=== PATIENT | male | born 1940 | race Caucasian/White ===

== ENCOUNTER → 2016-10-08 | Outpatient (CLI) | payer OTHER, MEDICARE ==
[~2016-10-08] VITALS: Ht 182.9 cm; Wt 86.2 kg
[~2016-10-08] MED LIST: ADULT LOW DOSE81 MG PO; ADVAIR HFA 230M12 GM INH; ALDACTONE25 MG PO; ASPIRIN EC325 M1 PO; ATORVASTATIN CA40 MG PO; CARVEDILOL12.5 MG PO; CHLORTHALIDONE25 MG PO; COREG PO; ELIQUIS5 MG PO; LASIX 40 MG TAB40 M1 PO; LASIX 40 MG TAB40 M2 PO; LEVOTHYROXINE 0.1 MG PO; LISINOPRIL40 MG PO; PACERONE 200 M200 M1 PO; POTASSIUM CHLO20 ME1 PO; POTASSIUM20 PO; PRADAXA150 MG PO; PROAIR HFA8.5 GM INH; SIMVASTATIN40 MG PO; SPIRIVA INH
--- NOTE | ~2016-10-08 | EKG ---
[address] [address] ELECTROCARDIOGRAM REPORT Name: TABITHA WATSON Room #: REG [facility]#: [id number] Admission: 10/08/16 Attend Phys: Mickey Molina MD Discharge: Date of : 38 Report #: [id number] THIS REPORT FOR: //name// [facility] Test Date: 2016-10-08 Test Time: 11:48:56 Pat Name: TABITHA WATSON Department: Room: Gender: M Chief Of Safety And Protection: nelly : 1940 Requested By: Mickey Molina Order Number: [id number] MD: Mickey Molina Measurements Intervals [place] Rate: 57 P: [place]: 64 QRS: 14 QRSD: 136 T: 265 QT: 457 QTc: 445 Interpretive Statements Atrial-paced rhythm Nonspecific intraventricular conduction delay Anteroseptal infarct, old Abnormal T, consider ischemia, diffuse leads Baseline wander in lead(s) V4,V6 No previous ECG available for comparison Electronically Signed On 10-08-2016 14:16:20 RN PLASTICS by Mickey Molina [email or web address] <ELECTRONICALLY SIGNED> By: Mickey Molina MD 10/08/16 1416 1148 1148 Mickey Molina MD /EPI
--- NOTE | ~2016-10-08 | P ---
[facility] [place] [address] [place] [address] PROCEDURE REPORT Name: WATSONTABITHA Huber Room #: REG [facility]#: [id number] Admission: 10/08/16 Attend Phys: Mickey Molina MD Discharge: Date of : 38 Report #: [id number] THIS REPORT FOR: //name// CC: Mickey Martinnadeem Crawfordcesilia DATE OF SERVICE: 10/08/2016 PREOPERATIVE DIAGNOSIS: Atrial fibrillation. POSTOPERATIVE DIAGNOSIS: Atrial fibrillation. HISTORY: The patient is a 76-year-old with ischemic cardiomyopathy, status post Medtronic ICD implantation, who presents with recurrent AFib and is here for cardioversion. ANESTHESIA: The patient underwent MAC anesthesia, no anesthesia related complications. DESCRIPTION OF PROCEDURE: The patient underwent informed consent, he had patches placed in AP fashion. Once sedated, he underwent a 200 joule cardioversion, which restored sinus rhythm for a few seconds and then went back to AFib. A second 200 joule cardioversion was performed with advent of sinus rhythm. His device was interrogated, post-cardioversion was found to be functioning normally. CONCLUSIONS: 1. Successful cardioversion with advent of sinus rhythm. 2. Normal device function. <ELECTRONICALLY SIGNED> By: Mickey Molina MD 10/08/16 1454 1135 1216 Mickey Molina MD /nt
[2016-10-08 10:23] VITALS: BP 129/66
== END | disposition home or self-care (01) ==
LOC: CATH 09:49
DX: I48.91 Unspecified atrial fibrillation (principal); I25.5 Ischemic cardiomyopathy

== ENCOUNTER → 2017-01-31 | Outpatient (CLI) | payer OTHER, MEDICARE ==
[2017-01-31 09:40] LABS: HEMATOCRIT 42.5 % (42.0-52.0); HEMOGLOBIN 14.4 gm/dL (14.0-18.0); MCH 32.2 pg (26.0-34.0); MCHC 33.8 g/dL (28.0-37.0); MCV 95.2 fL (80.0-100.0); RBC 4.47 mil/uL (4.50-6.00); RDW 15.1 % (10.5-14.5); WBC 5.1 thou/uL (4.0-11.0)
[2017-01-31 09:50] LABS: CALCIUM 8.9 mg/dL (8.5-10.1); CREATININE 1.4 mg/dL (0.7-1.3); POTASSIUM 4.1 mmol/L (3.5-5.1)
[2017-01-31 09:54] LABS: ALBUMIN 3.9 g/dL (3.4-5.0); TOTAL BILIRUBIN 1.2 mg/dL (<0.1-1.0); TOTAL PROTEIN 6.9 g/dL (6.4-8.2)
== END ==
LOC: CAT 08:59
PROVIDERS: Internal Medicine Cardiovascular Disease
DX: I48.91 Unspecified atrial fibrillation (principal)

== ENCOUNTER 2017-02-02 06:27 | Observation (INO) | payer OTHER, MEDICARE ==
[~2017-02-02] VITALS: Ht 182.9 cm; Wt 89.8 kg
[2017-02-02] VITALS (8 sets, daily range): BP systolic 133–159; BP diastolic 79–99
--- NOTE | ~2017-02-02 | D ---
[facility] [address] DISCHARGE SUMMARY Name: WALTERTABITHA Huber [id number] Admission: 02/02/17 Attend Phys: Mickey Molina MD Discharge: 02/03/17 Date of : 38 Report #: [id number] THIS REPORT FOR: //name// CC: Mickey Molina Frantz Crawfordcesilia DISCHARGE DIAGNOSES: 1. Atrial fibrillation status post atrial fibrillation ablation. 2. Hematuria related to traumatic Kerr placement. HISTORY: The patient is a 76-year-old with history of cardiomyopathy, prior CABG, prior ICD implantation who has had worse atrial fibrillation. Prior to the procedure, underwent transesophageal echo showing enlarged left atrium and moderate to severe mitral regurgitation. He underwent successful AFib ablation. There were no procedural complications. HOSPITAL COURSE: Post-ablation in recovery, he was noted not to have any significant urine output and a clot was found in the catheter. He then had some hematuria. On the day post-ablation, the patient was doing well and remained in sinus rhythm. The night prior to the procedure, I did start the patient on Multaq 400 mg a day and I did hold his Eliquis. This morning, I had his Kerr pulled and monitored him until about lunch time and he was urinating fine. Therefore, I gave him Pradaxa 150 mg twice a day as this does have reversal agent if further bleeding were to become an issue. I saw him around 3:30 p.m. and he was doing well with some mild blood tinged urine. As such, I thought he was stable for discharge home with instructions to follow up with me in 2 weeks. I would like him to continue with the Multaq 400 b.i.d. as well as the Pradaxa 150 mg twice a day and samples were provided. Discharge instructions were reviewed. <ELECTRONICALLY SIGNED> By: Mickey Molina MD 02/04/17 1104 1549 1635 Mickey Molina MD /nt
--- NOTE | ~2017-02-02 | EKG ---
[address] [address] ELECTROCARDIOGRAM REPORT Name: TABITHA WATSON Room #: 200-I [facility]..#: [id number] Admission: 02/02/17 Attend Phys: Mickey Molina MD Discharge: Date of : 38 Report #: [id number] THIS REPORT FOR: //name// [facility] Test Date: 2017-02-03 Test Time: 06:41:40 Pat Name: TABITHA WATSON Department: Room: 200 I Gender: M Windows Infrastructure Engineer: nelly : 1940 Requested By: Mickey Molina Order Number: [id number] MD: Reggie Villa Measurements Intervals [place] Rate: 72 P: MT: 195 QRS: 43 QRSD: 124 T: 251 QT: 431 QTc: 472 Interpretive Statements Atrial-paced rhythm Nonspecific intraventricular conduction delay Abnormal T, consider ischemia, diffuse leads Compared to ECG 10/08/2016 11:48:56 No significant change was found Electronically Signed On 02-03-2017 8:01:43 CDT by Reggie Villa [email or web address] <ELECTRONICALLY SIGNED> By: Reggie Villa MD, [facility] 02/03/17 0801 0641 0641 Reggie Villa MD, [facility] /EPI
--- NOTE | ~2017-02-02 | H ---
[facility] [place] [address] HISTORY AND PHYSICAL Name: TABITHA WATSON Room #: 200-I [facility] Brittany Porras#: [id number] Admission: 02/02/17 Attend Phys: Mickey Molina MD Discharge: 02/03/17 Date of : 38 Report #: [id number] THIS REPORT FOR: //name// For History and Physical, please see office documentation/handwritten note in the patient's medical record. <ELECTRONICALLY SIGNED> By: Mickey Molina MD 02/21/17 0831 6 Mickey Molina MD /
[2017-02-02 06:54] LABS: HEMATOCRIT 43.6 % (42.0-52.0); HEMOGLOBIN 14.7 gm/dL (14.0-18.0); MCH 32.7 pg (26.0-34.0); MCHC 33.6 g/dL (28.0-37.0); MCV 97.1 fL (80.0-100.0); RBC 4.49 mil/uL (4.50-6.00); WBC 5.3 thou/uL (4.0-11.0)
[2017-02-02 07:01] LABS: CALCIUM 8.8 mg/dL (8.5-10.1); CREATININE 1.5 mg/dL (0.7-1.3); POTASSIUM 3.7 mmol/L (3.5-5.1)
[2017-02-02 07:05] LABS: ALBUMIN 4.2 g/dL (3.4-5.0); TOTAL BILIRUBIN 1.5 mg/dL (<0.1-1.0); TOTAL PROTEIN 7.4 g/dL (6.4-8.2)
[2017-02-02 07:09] LABS: APTT 31.2 Seconds (24.5-32.8); INR 1.3; PROTIME 13.1 Seconds (9.3-11.4)
[2017-02-02 23:55] LABS: HEMATOCRIT 40.2 % (42.0-52.0); HEMOGLOBIN 13.5 gm/dL (14.0-18.0); MCH 32.5 pg (26.0-34.0); MCHC 33.6 g/dL (28.0-37.0); MCV 96.9 fL (80.0-100.0); RBC 4.16 mil/uL (4.50-6.00); WBC 8.5 thou/uL (4.0-11.0)
[2017-02-03] VITALS (7 sets, daily range): BP systolic 104–139; BP diastolic 64–83
[2017-02-03 03:52] LABS: HEMATOCRIT 39.4 % (42.0-52.0); HEMOGLOBIN 13.3 gm/dL (14.0-18.0); MCH 32.9 pg (26.0-34.0); MCHC 33.8 g/dL (28.0-37.0); MCV 97.5 fL (80.0-100.0); RBC 4.04 mil/uL (4.50-6.00); RDW 15.1 % (10.5-14.5); WBC 8.4 thou/uL (4.0-11.0)
[2017-02-03 04:08] LABS: CALCIUM 8.4 mg/dL (8.5-10.1); CREATININE 1.3 mg/dL (0.7-1.3); POTASSIUM 4.5 mmol/L (3.5-5.1)
[2017-02-03] MEDS ORDERED: PRADAXA150 MG PO (15:40)
[2017-02-03] MEDS ORDERED: MULTAQ 400 MG400 MG PO (15:41)
[2017-02-14] MEDS ORDERED: ZYRTEC10 MG PO (03:13)
[2017-02-14] MEDS ORDERED: NAPROSYN500 MG PO (03:13)
[2017-02-14] MEDS ORDERED: PREDNISONE 20 M20 MG PO (03:13)
[2017-02-14] MEDS ORDERED: ELIQUIS5 MG PO (04:28)
[2017-02-16] MEDS ORDERED: PROSCAR 5MG TABL5 MG PO (12:18)
== END 2017-02-03 17:19 | disposition home or self-care (01) ==
LOC: CATH 06:27 → 2N 15:11
PROVIDERS: Internal Medicine; Internal Medicine Cardiovascular Disease
DX: I48.91 Unspecified atrial fibrillation (principal); R31.9 Hematuria, unspecified; I42.9 Cardiomyopathy, unspecified; I25.10 Atherosclerotic heart disease of native coronary artery without angina pectoris; I10 Essential (primary) hypertension; E78.5 Hyperlipidemia, unspecified; Z95.810 Presence of automatic (implantable) cardiac defibrillator; Z72.89 Other problems related to lifestyle
CPT/HCPCS: 50454; 62110; 62900; 70005

== ENCOUNTER 2017-02-03 19:21 | Inpatient (IN) | payer OTHER, MEDICARE ==
[~2017-02-03] VITALS: Ht 182.9 cm; Wt 89.8 kg
--- NOTE | ~2017-02-03 | HC ---
[facility] [place] [address] CONSULTATION Name: TABITHA WATSON Huber Room #: 301-I [facility]#: [id number] Admission: 02/03/17 Attend Phys: Ju De La Torre MD Discharge: 02/07/17 Date of : 38 Report #: [id number] THIS REPORT FOR: //name// CC: Jose Caruso DATE OF SERVICE: 02/03/2017 CHIEF COMPLAINT: Urinary retention, gross hematuria. HISTORY OF PRESENT ILLNESS: The patient is a very pleasant 76-year-old gentleman who is being seen today at the request of Dr. De La Torre for evaluation and management of gross hematuria. Specifically, he underwent cardiac ablation earlier today. He was admitted last night and had hematuria. The catheter required irrigation. He apparently was doing better this morning and was started on Pradaxa and he developed gross hematuria and inability to urinate. Initially, came to the Emergency Room and the catheter was placed, 900 mL of urine was obtained, which was grossly bloody and a few clots were irrigated. Denies prior hematuria. He is followed for BPH by Dr. Caruso. ALLERGIES: None. ILLNESSES: Coronary artery disease, arrhythmia, hypertension, hypercholesterolemia, atrial flutter. MEDICATIONS: Pradaxa 100 mg daily, Multaq 400 mg daily, lisinopril 20 mg daily, Coreg 25 mg b.i.d., atorvastatin 40 mg daily, potassium chloride 20 mEq daily, Synthroid 100 mcg daily, Lasix 40 mg daily. He was recently on Eliquis. SURGERIES: Include coronary artery bypass grafting, defibrillator placement, nasal surgery, laparoscopic hernia repair, ICD placement, . SOCIAL HISTORY: No recreational drug use. REVIEW OF SYSTEMS: He denies shortness of breath or chest pain. PHYSICAL EXAMINATION: GENERAL: He is lying in bed. He has a catheter in bladder with very dark blood-tinged urine, really not draining presently. VITAL SIGNS: Blood pressure 134/95, temperature is 36.7, pulse 75, respirations 17. ABDOMEN: Lower abdomen is firm. GENITOURINARY: He has a normal phallus with an indwelling catheter. LABORATORY DATA: White count 9.9 thousand, hemoglobin 12.3, hematocrit 36.6, [address] [address] CONSULTATION Name: TABITHA WATSON Room #: 301-I [facility]#: [id number] Admission: 02/03/17 Attend Phys: Ju De La Torre MD Discharge: 02/07/17 Date of : 38 Report #: [id number] platelets 133,000. Sodium 140, potassium 4.1, chloride 104, CO2 of 23, BUN is 26, creatinine 1.8, glucose 140. I took down the balloon on the catheter. I advanced it and retrieved few small clots and irrigated until it was a light pink to clear color. Continuous irrigation was applied, 30 mL of water was then placed in the balloon. CBI was running. IMPRESSION: Gross hematuria, probably secondary to lower tract manipulation, BPH and anticoagulation. PLAN: Continue continuous irrigation and bladder irrigation as needed. Would not recommend intervention given the fact that he recently took Pradaxa and has been on blood thinners. We will follow closely. <ELECTRONICALLY SIGNED> By: Jose Villalobos MD 02/08/17 1638 2249 0013 Jose Villalobos MD /nt
[~2017-02-03 19:21] MED LIST changes: +MULTAQ 400 MG400 MG PO
[2017-02-03 19:29] VITALS: BP 134/95
[2017-02-03 20:33] LABS: ABSOLUTE NEUTROPHILS 7.9 thou/uL (1.4-8.2); BASOPHILS 0.5 % (0.0-2.0); EOSINOPHILS 1.4 % (0.0-3.0); HEMATOCRIT 36.6 % (42.0-52.0); HEMOGLOBIN 12.3 gm/dL (14.0-18.0); LYMPHOCYTES 8.9 % (24.0-44.0); MCH 32.7 pg (26.0-34.0); MCHC 33.6 g/dL (28.0-37.0); MCV 97.4 fL (80.0-100.0); MONOCYTES 9.4 % (1.0-8.0); PLATELET COUNT 133 thou/uL (150-400); POLYS 79.8 % (36.0-66.0); RBC 3.76 mil/uL (4.50-6.00); RDW 14.8 % (10.5-14.5); WBC 9.9 thou/uL (4.0-11.0)
[2017-02-03 20:39] LABS: MANUAL DIFF NO
[2017-02-03 20:42] LABS: CALCIUM 8.8 mg/dL (8.5-10.1); CREATININE 1.8 mg/dL (0.7-1.3); POTASSIUM 4.1 mmol/L (3.5-5.1)
[2017-02-03 20:48] LABS: INR 1.5; PROTIME 15.7 Seconds (9.3-11.4)
[2017-02-03 20:50] LABS: APTT 47.4 Seconds (24.5-32.8)
[2017-02-03 22:50] VITALS: BP 151/86
[2017-02-03 23:15] VITALS: BP 155/83
[2017-02-04 06:28] LABS: HEMATOCRIT 31.5 % (42.0-52.0); HEMOGLOBIN 10.7 gm/dL (14.0-18.0); MCH 33.2 pg (26.0-34.0); MCV 97.6 fL (80.0-100.0); RBC 3.23 mil/uL (4.50-6.00); RDW 15.1 % (10.5-14.5); WBC 8.9 thou/uL (4.0-11.0)
[2017-02-04 06:46] LABS: ALBUMIN 3.5 g/dL (3.4-5.0); CALCIUM 8.6 mg/dL (8.5-10.1); CREATININE 1.6 mg/dL (0.7-1.3); POTASSIUM 4.3 mmol/L (3.5-5.1); TOTAL PROTEIN 6.3 g/dL (6.4-8.2)
[2017-02-04 09:15] VITALS: BP 139/75
[2017-02-04 11:00] VITALS: BP 129/73
[2017-02-04 15:14] VITALS: BP 129/73
[2017-02-04 16:10] VITALS: BP 104/70
[2017-02-04 19:30] VITALS: BP 106/71
[2017-02-05] VITALS: BP 107/61
[2017-02-05 02:10] LABS: GLYCOHEMOGLOBIN (HGB A1C) 5.2 % (4.8-5.6)
[2017-02-05 03:45] VITALS: BP 110/74
[2017-02-05 06:00] LABS: HEMATOCRIT 28.2 % (42.0-52.0); HEMOGLOBIN 9.6 gm/dL (14.0-18.0); MCH 33.3 pg (26.0-34.0); MCHC 34.2 g/dL (28.0-37.0); MCV 97.6 fL (80.0-100.0); RBC 2.89 mil/uL (4.50-6.00); RDW 14.9 % (10.5-14.5)
[2017-02-05 06:13] LABS: CALCIUM 8.3 mg/dL (8.5-10.1); CREATININE 1.4 mg/dL (0.7-1.3); POTASSIUM 4.2 mmol/L (3.5-5.1)
[2017-02-05 07:25] VITALS: BP 138/80
[2017-02-05 15:42] VITALS: BP 108/79
[2017-02-05 20:17] VITALS: BP 109/73
[2017-02-06 04:30] VITALS: BP 105/67
[2017-02-06 05:30] LABS: ABSOLUTE NEUTROPHILS 4.9 thou/uL (1.4-8.2); BASOPHILS 0.8 % (0.0-2.0); EOSINOPHILS 3.7 % (0.0-3.0); HEMATOCRIT 26.1 % (42.0-52.0); LYMPHOCYTES 14.5 % (24.0-44.0); MCH 33.5 pg (26.0-34.0); MCHC 34.5 g/dL (28.0-37.0); MCV 97.1 fL (80.0-100.0); PLATELET COUNT 105 thou/uL (150-400); RBC 2.68 mil/uL (4.50-6.00); RDW 14.8 % (10.5-14.5)
[2017-02-06 05:39] LABS: MANUAL DIFF NO
[2017-02-06 05:51] LABS: CALCIUM 8.3 mg/dL (8.5-10.1); CREATININE 1.8 mg/dL (0.7-1.3)
[2017-02-06 07:50] VITALS: BP 112/62
[2017-02-06 15:50] VITALS: BP 94/57
[2017-02-06 20:00] VITALS: BP 111/75
[2017-02-07 04:00] VITALS: BP 120/69
[2017-02-07 05:20] LABS: ABSOLUTE NEUTROPHILS 3.8 thou/uL (1.4-8.2); BASOPHILS 0.8 % (0.0-2.0); EOSINOPHILS 4.4 % (0.0-3.0); HEMATOCRIT 25.5 % (42.0-52.0); HEMOGLOBIN 8.8 gm/dL (14.0-18.0); LYMPHOCYTES 16.2 % (24.0-44.0); MCH 33.4 pg (26.0-34.0); MCHC 34.5 g/dL (28.0-37.0); MCV 96.8 fL (80.0-100.0); MONOCYTES 10.1 % (1.0-8.0); PLATELET COUNT 105 thou/uL (150-400); POLYS 68.5 % (36.0-66.0); RBC 2.64 mil/uL (4.50-6.00); RDW 14.6 % (10.5-14.5); WBC 5.5 thou/uL (4.0-11.0)
[2017-02-07 05:27] LABS: MANUAL DIFF NO
[2017-02-07 05:34] LABS: CALCIUM 8.4 mg/dL (8.5-10.1); CREATININE 1.7 mg/dL (0.7-1.3); POTASSIUM 3.9 mmol/L (3.5-5.1)
[2017-02-07 07:30] VITALS: BP 117/75
[2017-02-07] MEDS ORDERED: ELIQUIS5 MG PO (09:20)
[2017-02-07 10:46] VITALS: BP 129/73
[2017-02-07 10:49] VITALS: BP 129/73
== END 2017-02-07 12:12 | disposition home health service (06) | DRG 699 ==
LOC: ER 19:21 → 3N 21:59 → EROBS 21:59 → 3N 22:49
PROVIDERS: Emergency Medicine; Family Medicine; Internal Medicine; Internal Medicine Endocrinology, Diabetes & Metabolism; Nurse Practitioner Family
DX: T83.83XA Hemorrhage due to genitourinary prosthetic devices, implants and grafts, initial encounter (principal); I48.92 Unspecified atrial flutter; D62 Acute posthemorrhagic anemia; N17.9 Acute kidney failure, unspecified; N40.0 Benign prostatic hyperplasia without lower urinary tract symptoms; N18.9 Chronic kidney disease, unspecified; I12.9 Hypertensive chronic kidney disease with stage 1 through stage 4 chronic kidney disease, or unspecified chronic kidney disease; E78.00 Pure hypercholesterolemia, unspecified; I25.5 Ischemic cardiomyopathy; N13.9 Obstructive and reflux uropathy, unspecified; E78.5 Hyperlipidemia, unspecified; I25.10 Atherosclerotic heart disease of native coronary artery without angina pectoris; E03.9 Hypothyroidism, unspecified; R14.0 Abdominal distension (gaseous); I48.91 Unspecified atrial fibrillation; I34.0 Nonrheumatic mitral (valve) insufficiency; Z79.899 Other long term (current) drug therapy; Z95.1 Presence of aortocoronary bypass graft; I25.2 Old myocardial infarction; Z95.810 Presence of automatic (implantable) cardiac defibrillator; Z79.01 Long term (current) use of anticoagulants
CPT/HCPCS: 10096

== ENCOUNTER → 2017-03-29 | Outpatient (CLI) | payer OTHER, MEDICARE ==
[~2017-03-29] VITALS: Ht 182.9 cm; Wt 81.6 kg
[~2017-03-29] MED LIST changes: +LISINOPRIL20 MG PO; +NAPROSYN500 MG PO; +PREDNISONE 20 M20 MG PO; +PROSCAR 5MG TABL5 MG PO; +ZYRTEC10 MG PO
--- NOTE | ~2017-03-29 | EKG ---
[address] [address] ELECTROCARDIOGRAM REPORT Name: TABITHA WATSON Room #: [facility]#: [id number] Admission: 03/29/17 Attend Phys: Mickey Molina MD Discharge: Date of : 38 Report #: [id number] THIS REPORT FOR: //name// [facility] Test Date: 2017-03-29 Test Time: 10:30:04 Pat Name: TABITHA WATSON Department: Room: Gender: Emergency Department Nurse: sc : 1940 Requested By: Mickey Molina Order Number: [id number] MD: Reggie Villa Measurements Intervals [place] Rate: 65 P: [place]: 185 QRS: 55 QRSD: 142 T: 190 QT: 459 QTc: 478 Interpretive Statements Atrial-paced rhythm Nonspecific intraventricular conduction delay Borderline repolarization abnormality Compared to ECG 02/03/2017 06:41:40 T-wave abnormality less pronounced Electronically Signed On 03-29-2017 18:13:27 CDT by Reggie Villa [email or web address] <ELECTRONICALLY SIGNED> By: Reggie Villa MD, [facility] 03/29/17 [phone] 29 Reggie Villa MD, [facility] /EPI
[2017-03-29 08:40] VITALS: BP 123/83
[2017-03-29 08:54] LABS: HEMATOCRIT 36.9 % (42.0-52.0); MCH 28.2 pg (26.0-34.0); MCHC 32.4 g/dL (28.0-37.0); RBC 4.24 mil/uL (4.50-6.00); RDW 16.8 % (10.5-14.5); WBC 6.5 thou/uL (4.0-11.0)
[2017-03-29 09:05] LABS: CALCIUM 8.7 mg/dL (8.5-10.1); CREATININE 1.5 mg/dL (0.7-1.3); POTASSIUM 3.4 mmol/L (3.5-5.1)
[2017-03-29 09:06] LABS: ALBUMIN 3.8 g/dL (3.4-5.0); TOTAL BILIRUBIN 0.9 mg/dL (<0.1-1.0); TOTAL PROTEIN 7.4 g/dL (6.4-8.2)
[2017-03-29 09:11] LABS: APTT 33.6 Seconds (24.5-32.8); INR 1.5; PROTIME 15.5 Seconds (9.3-11.4)
== END | disposition home or self-care (01) ==
LOC: CATH 08:15 → OPONC 08:15
PROVIDERS: Internal Medicine Cardiovascular Disease
DX: I48.91 Unspecified atrial fibrillation (principal); I42.8 Other cardiomyopathies; I25.2 Old myocardial infarction; E78.00 Pure hypercholesterolemia, unspecified; I10 Essential (primary) hypertension; Z95.1 Presence of aortocoronary bypass graft; Z98.890 Other specified postprocedural states; Z82.49 Family history of ischemic heart disease and other diseases of the circulatory system; Z95.810 Presence of automatic (implantable) cardiac defibrillator; Z95.5 Presence of coronary angioplasty implant and graft; Z79.01 Long term (current) use of anticoagulants; Z79.899 Other long term (current) drug therapy
CPT/HCPCS: 62110; 62900

== ENCOUNTER → 2017-05-20 | Outpatient (CLI) | payer OTHER, MEDICARE ==
[~2017-05-20] VITALS: Ht 182.9 cm; Wt 83.9 kg
--- NOTE | ~2017-05-20 | P ---
[facility] [address] [address] PROCEDURE REPORT Name: TABITHA WATSON Room #: REG [facility]#: [id number] Admission: 05/20/17 Attend Phys: Mickey Molina MD Discharge: Date of : 38 Report #: [id number] THIS REPORT FOR: //name// CC: Mickey Martinen Zuly DATE OF SERVICE: 05/20/2017 PREOPERATIVE DIAGNOSIS: Atrial fibrillation. POSTOPERATIVE DIAGNOSIS: Atrial fibrillation. DESCRIPTION OF PROCEDURE: The patient underwent informed consent. The patient then was sedated by the Anesthesiology service. Prior to cardioversion, the device interrogation was performed of his ICD showing that he was in AFib. Once the patient was sedated, the patient underwent successful DC cardioversion with 200 joules with congregation of sinus rhythm. The device was reinterrogated and found to be functioning normally. CONCLUSIONS: 1. Successful DC cardioversion with congregation of sinus rhythm. 2. Successful implantable cardioverter defibrillator device interrogation with stable device function. By: [id number] Mickey Molina MD /nt
[2017-05-20 09:23] VITALS: BP 134/77
[2017-05-20 09:40] LABS: ABSOLUTE NEUTROPHILS 3.2 thou/uL (1.4-8.2); BASOPHILS 1.5 % (0.0-2.0); EOSINOPHILS 5.7 % (0.0-3.0); HEMATOCRIT 38.3 % (42.0-52.0); HEMOGLOBIN 12.7 gm/dL (14.0-18.0); LYMPHOCYTES 16.7 % (24.0-44.0); MCH 27.3 pg (26.0-34.0); MCHC 33.2 g/dL (28.0-37.0); MCV 82.3 fL (80.0-100.0); MONOCYTES 11.7 % (1.0-8.0); PLATELET COUNT 100 thou/uL (150-400); POLYS 64.4 % (36.0-66.0); RBC 4.66 mil/uL (4.50-6.00); RDW 23.2 % (10.5-14.5)
[2017-05-20 09:43] LABS: MANUAL DIFF NO
[2017-05-20 09:57] LABS: CALCIUM 8.7 mg/dL (8.5-10.1); CREATININE 1.5 mg/dL (0.7-1.3); POTASSIUM 3.7 mmol/L (3.5-5.1)
[2017-05-20 10:02] LABS: TOTAL BILIRUBIN 1.3 mg/dL (<0.1-1.0); TOTAL PROTEIN 7.2 g/dL (6.4-8.2)
[2017-05-20 10:10] LABS: INR 1.5; PROTIME 14.9 Seconds (9.3-11.4)
[2017-05-20 10:49] LABS: ANISOCYTOSIS 3+; OVALOCYTES FEW
[2017-05-20 10:50] LABS: MICROCYTES 1+
== END ==
LOC: NUC 08:43 → CATH 08:43 → NUC 05-24 08:36
PROVIDERS: Internal Medicine Cardiovascular Disease
DX: I48.91 Unspecified atrial fibrillation (principal); I42.8 Other cardiomyopathies; I10 Essential (primary) hypertension; E78.00 Pure hypercholesterolemia, unspecified; E78.5 Hyperlipidemia, unspecified; I25.2 Old myocardial infarction; Z95.1 Presence of aortocoronary bypass graft; Z79.899 Other long term (current) drug therapy
CPT/HCPCS: 62110; 62900

== ENCOUNTER → 2017-05-24 | Outpatient (CLI) | payer OTHER, MEDICARE | LOC: NUC 08:05 | DX: I48.91 Unspecified atrial fibrillation (principal) ==

== ENCOUNTER → 2017-12-01 | Outpatient (CLI) | payer OTHER, MEDICARE ==
[~2017-12-01] VITALS: Ht 182.9 cm; Wt 83.9 kg
--- NOTE | ~2017-12-01 | P ---
[facility] [place] [address] [address] PROCEDURE REPORT Name: SOM WATSONRY Huber Room #: REG [facility]#: [id number] Admission: 12/01/17 Attend Phys: Mickey Molina MD Discharge: Date of : 38 Report #: [id number] THIS REPORT FOR: //name// CC: Reggie Caruso PREOPERATIVE DIAGNOSIS: Atrial fibrillation. POSTOPERATIVE DIAGNOSIS: Atrial fibrillation. DESCRIPTION OF PROCEDURE: The patient underwent informed consent. The patient was prepped in a standard technique. He was sedated by the Anesthesiology Service. He underwent synchronized 120 joule cardioversion, which was unsuccessful. A repeat cardioversion at 200 joules restored sinus rhythm. There were no complications. CONCLUSIONS: Successful DC cardioversion with anglican of sinus rhythm. <ELECTRONICALLY SIGNED> By: Mickey Molina MD 12/30/17 1407 1324 1916 Mickey Molina MD /nt
[2017-12-01 11:15] VITALS: BP 131/83
[2017-12-01 11:31] LABS: ABSOLUTE NEUTROPHILS 3.5 thou/uL (1.4-8.2); BASOPHILS 0.8 % (0.0-2.0); EOSINOPHILS 7.3 % (0.0-3.0); HEMATOCRIT 43.8 % (42.0-52.0); HEMOGLOBIN 14.6 gm/dL (14.0-18.0); LYMPHOCYTES 18.7 % (24.0-44.0); MCH 32.6 pg (26.0-34.0); MCHC 33.4 g/dL (28.0-37.0); MCV 97.7 fL (80.0-100.0); MONOCYTES 11.3 % (1.0-8.0); PLATELET COUNT 117 thou/uL (150-400); POLYS 61.9 % (36.0-66.0); RBC 4.48 mil/uL (4.50-6.00); RDW 16.6 % (10.5-14.5); WBC 5.6 thou/uL (4.0-11.0)
[2017-12-01 11:45] LABS: CALCIUM 8.7 mg/dL (8.5-10.1); CREATININE 1.4 mg/dL (0.7-1.3); POTASSIUM 3.7 mmol/L (3.5-5.1)
[2017-12-01 11:47] LABS: APTT 32.4 Seconds (24.5-32.8); INR 1.4; PROTIME 13.8 Seconds (9.3-11.4)
[2017-12-01 11:51] LABS: TOTAL BILIRUBIN 1.6 mg/dL (<0.1-1.0); TOTAL PROTEIN 7.4 g/dL (6.4-8.2)
== END | disposition home or self-care (01) ==
LOC: CATH 07:38
PROVIDERS: Internal Medicine Cardiovascular Disease
DX: I48.91 Unspecified atrial fibrillation (principal); I10 Essential (primary) hypertension; I42.9 Cardiomyopathy, unspecified; I25.2 Old myocardial infarction; E78.5 Hyperlipidemia, unspecified; Z95.1 Presence of aortocoronary bypass graft; Z95.5 Presence of coronary angioplasty implant and graft; Z95.810 Presence of automatic (implantable) cardiac defibrillator; Z98.890 Other specified postprocedural states; Z79.899 Other long term (current) drug therapy; Z79.01 Long term (current) use of anticoagulants
CPT/HCPCS: 62110; 62900